=== PATIENT | female | born 1950 | race Caucasian/White ===

== ENCOUNTER 2019-07-03 17:29 | Emergency (ER) | payer MEDICARE ==
[2019-07-03] MEDS ORDERED: Aspirin 81 mg CHEW TAB* 81 MG TAB.CHEW PO ONE (17:59)
--- NOTE | 2019-07-03 18:02 | ED ---
HPI Chest Pain - HPI Summary HPI Summary: 69-year-old female presents with chest pain for the past week. 2 weeks ago she had a tooth removed on her left lower jaw. She states she felt like she started to develop swelling and tenderness of left side of neck after that. She was placed on a week of antibiotics with no improvement. She states that she then flew to the area for [place] and developed severe upper back pain on the flight. She landed and develop chest pain. The pain has been change in intensity. States this is sharp pain. Is worse with deep breath. She denies any shortness of breath. Has had a dry cough. No abdominal pain nausea vomiting. Tried some Prilosec with minimal relief. She has a family history cardiac disease. Only has a history of hypothyroidism. She denies any fevers. Has not been around anyone who is sick. Denies any dizziness. Pain is worst with movement. - History of Current Complaint Chief Complaint: EDChestPainROMI Time Seen by Provider: 07/03/19 17:49 Pain Intensity: 3 PMH/Surg Hx/FS Hx/Imm Hx Endocrine/Hematology History: Denies: Hx Anticoagulant Therapy Respiratory History: Denies: Hx Asthma Infectious Disease History: No Infectious Disease History: Denies: Traveled Outside the [place] in Last 30 Days - Family History Known Family History: Positive: Cardiac Disease - Social History Substance Use Type: Reports: None Smoking Status (MU): Never Smoked Tobacco Review of Systems Negative: Fever Positive: Chest Pain Positive: Cough. Negative: Shortness Of Breath Negative: Vomiting, Nausea All Other Systems Reviewed And Are Negative: Yes Physical Exam Triage Information Reviewed: Yes Vital Signs On Initial Exam: Initial Vitals Temp Pulse Resp BP Pulse Ox 97.7 F 63 14 170/71 99 07/03/19 17:39 07/03/19 17:39 07/03/19 17:39 07/03/19 17:39 07/03/19 17:39 Vital Signs Reviewed: Yes Appearance: Positive: Well-Appearing Skin: Positive: Warm, Dry Head/Face: Positive: Normal Head/Face Inspection Eyes: Positive: Normal, EOMI, DANYA, Conjunctiva Clear ENT: Positive: Normal ENT inspection, Pharynx normal, TMs normal Dental: Positive: Other - no submandibular tenderness of swelling. Negative: Abscess @ Neck: Positive: Supple, Nontender, No Lymphadenopathy Respiratory/Lung Sounds: Positive: Clear to Auscultation, Breath Sounds Present Cardiovascular: Positive: Normal, RRR Abdomen Description: Positive: Nontender, Soft Bowel Sounds: Positive: Present Musculoskeletal: Positive: Normal Neurological: Positive: Normal Psychiatric: Positive: Normal Procedures - Sedation Patient Received Moderate/Deep Sedation with Procedure: No Diagnostics - Vital Signs Vital Signs Temp Pulse Resp BP Pulse Ox 07/03/19 17:39 97.7 F 63 14 170/71 99 - Laboratory Result Diagrams: 07/03/19 18:04 07/03/19 18:04 Lab Statement: Any lab studies that have been ordered have been reviewed, and results considered in the medical decision making process. - Radiology chest Radiology Interpretation Completed By: ED Physician Summary of Radiographic Findings: no active disease - EKG No standard instances Cardiac Rate: NL EKG Rhythm: Sinus Rhythm Summary of EKG Findings: sinus rhythm Re-Evaluation - Re-Evaluation First Eval Re-Evaluation Time: 19:04 Comment: discussed results, will try gi cocktail Second Eval Re-Evaluation Time: 21:00 Comment: no change with maalox Chest Pain Course/Dx - Course Course Of Treatment: 69-year-old female presents with chest pain for the past week. 2 weeks ago she had a tooth removed on her left lower jaw. She states she felt like she started to develop swelling and tenderness of left side of neck after that. She was placed on a week of antibiotics with no improvement. She states that she then flew to the area for [place] and developed severe upper back pain on the flight. She landed and develop chest pain. The pain has been change in intensity. States this is sharp pain. Is worse with deep breath. She denies any shortness of breath. Has had a dry cough. No abdominal pain nausea vomiting. Tried some Prilosec with minimal relief. She has a family history cardiac disease. Only has a history of hypothyroidism. She denies any fevers. Has not been around anyone who is sick. Denies any dizziness. Pain is worst with movement. On exam has nonreproducible chest pain. lungs CTA. no lymphadenopathy. no submandibular tenderness. EKG shows sinus rhythm. heart score 3. wbc normal. d-dimer neg. chest xray normal. crp normal. troponin zero x2. tried gi cocktail with no improvement. discussed that patient should follow up with primary. told if develop SOB or chest pain to return. patient understand and agrees with plan. - Chest Pain Differential Diagnosis/HQI/PQRI: Angina, Lower Respiratory Infection, Pulmonary Embolism - Diagnoses Provider Diagnoses: Atypical chest pain Discharge ED - Sign-Out/Discharge Documenting (check all that apply): Patient Departure - Discharge Plan Condition: Good Disposition: HOME Patient Education Materials: Chest Pain (ED) Referrals: No Primary Care Phys,NOPCP [Primary Care Provider] - Additional Instructions: follow up with primary within 5 days Take Tylenol every 6 hours for pain Return to ED if develop any new or worsening symptoms - Billing Disposition and Condition Condition: GOOD Disposition: Home
[2019-07-03 18:19] LABS: ABS Basophils 0.1 10^3/ul (0-0.2); ABS Eosinophils 0.3 10^3/ul (0-0.6); ABS Lymphocytes 1.7 10^3/ul (1.0-4.8); ABS Monocytes 0.5 10^3/ul (0-0.8); ABS Neutrophils 2.7 10^3/ul (1.5-7.7); Eosinophil % 6.5 %; Hematocrit 39 % (35-47); Hemoglobin 13.7 g/dL (12.0-16.0); Lymphocyte % 32.5 %; Mean Corpuscular HGB Conc 35 g/dL (31-36); Mean Corpuscular Hemoglobin 30 pg (27-31); Mean Corpuscular Volume 87 fL (80-97); Mean Platelet Volume 7.7 fL (7.4-10.4); Platelet Count 253 10^3/uL (150-450); Red Blood Count 4.53 10^6 /uL (3.70-4.87); Red Cell Distribution Width 13 % (10-15); White Blood Count 5.3 10^3/uL (3.5-10.8)
[2019-07-03 18:28] LABS: INR 0.97 (0.82-1.09)
[2019-07-03 18:38] LABS: Albumin 4.1 g/dL (3.2-5.2); Albumin/Globulin Ratio 1.4 (1-3); BUN/Creatinine Ratio 20.9 (8-20); C Reactive Protein 1.57 mg/L (<8.01); Calcium 9.2 mg/dL (8.6-10.3); EGFR African American 105.6 (>60); EGFR Non-African American 87.3 (>60); Globulin 2.9 g/dL (2-4); Potassium 3.7 mmol/L (3.5-5.0); Total Bilirubin 0.3 mg/dL (0.2-1.0)
[2019-07-03] MEDS ORDERED: Al Hydrox/Mg Hydrox/Simet LIQ* 30 ML UDC PO ONE (19:04)
[2019-07-03] MEDS ORDERED: Lidocaine 2% VISCOUS* 15 ML UDC PO ONE (19:04)
[2019-07-03 21:10] VITALS: BP 150/85
== END 2019-07-03 21:02 | disposition home or self-care (01) ==
LOC: ED 17:29
DX: R07.89 Other chest pain (principal)
CPT/HCPCS: 36415; 71046; 80053; 83690; 83880; 84484; 85025; 85379; 85610; 86140; 93005; 99283; A9270-GY